=== PATIENT | male | born 1955 | race Caucasian/White ===

== ENCOUNTER 2024-10-05 18:47 | Inpatient (IN) | payer BC, MEDICARE ==
[~2024-10-05] VITALS: Ht 188 cm; Wt 98.1 kg
--- NOTE | 2024-10-05 18:58 | Physician Documentation ---
History of Present Illness ~ Chief Complaint: Stroke Alert Stated Complaint: LT EYE WENT DARK, MY DR THINKS I HAD A STROKE Time Seen by MD: 18:54 HPI one sided sight loss at floor covering printer assistant who sent patient here as he believes he is having an ischemic episode. Patient presents to the emergency room for evaluation of left-sided eye blindness of sudden onset at 5:15 p.m. patient was concerned therefore he went to his floor covering printer assistant who performed an exam and diagnosed him with central retinal artery occlusion with a booker-red macula and report was brought with patient. He had denies any one-sided deficits. Pupil was noted bili of unequal size. Medication Reconciliation Allergies: Coded Allergies: aspirin (Verified Allergy, Unknown, 10/05/24) Uncoded Allergies: ARTIFICIAL SWEETENERS (Allergy, Unknown, 10/05/24) PENICILLIN (Allergy, Unknown, 10/05/24) Review of Systems ROS All review of systems negative except as per HPI Physical Exam General Appearance General: Patient is awake, alert, oriented x4 in no acute distress Head: Normocephalic and atraumatic. Eyes: Conjunctival normal. EOMI. Noted dilated left pupil. ENT: Mucous membranes moist. Neck: Supple, trachea is midline. Chest: Clear to auscultation bilaterally without rales, rhonchi, or wheezes. There is no accessory muscle use or retractions. Cardiac: RRR without murmurs, gallops, or rubs. Extremities: Normal strength. Normal range of motion. No deformities or edema. Neuro: No weakness x4 no facial asymmetry aside from dilated left pupil. Extraocular movements intact Progress Progress Note Patient has been seen in the stroke window therefore level one stroke called. Neurologist at bedside has consented patient recommends TNK. Results/Orders Results/Orders Orders - AIDAN COLES MD Type And Screen (10/05/24 18:54) Urinalysis, Cult If Indicated (10/05/24 18:54) Chest,Single View (10/05/24 18:54) Ct Stroke Alert (10/05/24 18:54) Cta Neck/Head (10/05/24 18:54) * Vital Signs Routine* [id number] (10/05/24 18:54) * Blood Glucose Assessment * ONCE (10/05/24 18:54) * Npo Until Passed Bedside Swa (10/05/24 18:54) Nursing Swallow Screen (10/05/24 18:54) Tenecteplase-Tnkase Inj (Tnkase Inj) (10/05/24 19:45) Completed Orders - AIDAN COLES MD Electrocardiogram (10/05/24 18:54) Cbc/Diff (10/05/24 18:54) BMP (10/05/24 18:54) Pt Inr (10/05/24 18:54) PTT (10/05/24 18:54) Ct Stroke Alert (10/05/24 18:54) Cta Neck/Head (10/05/24 18:54) Iohexol 350mg/Ml 100ml (Omnipaque 350mg/ (10/05/24 18:59) Vital Signs 10/05/24 10/05/24 10/05/24 18:49 19:16 19:40 Temp 97.9 Pulse 82 77 Resp 16 16 21 B/P (MAP) 156/88 159/80 Pulse Ox 97 97 O2 Flow Rate 0 Laboratory Tests Test 10/05/24 19:19 White Blood Count 6.7 Red Blood Count 4.85 Hemoglobin 14.8 Hematocrit 43.0 Mean Corpuscular Volume 88.6 Mean Corpuscular Hemoglobin 30.6 Mean Corpuscular Hemoglobin Concent 34.5 Red Cell Distribution Width 13.9 Platelet Count 165 Mean Platelet Volume 8.4 Neutrophils (%) (Auto) 69.5 Lymphocytes (%) (Auto) 18.2 L Monocytes (%) (Auto) 9.9 Eosinophils (%) (Auto) 1.6 Basophils (%) (Auto) 0.8 Neutrophils # (Auto) 4.6 Lymphocytes # (Auto) 1.2 Monocytes # (Auto) 0.7 Eosinophils # (Auto) 0.1 Basophils # (Auto) 0.1 CBC Comment Prothrombin Time 10.4 INR International Normalized Ratio 1.0 Activated Partial Thromboplast Time 26 Coagulation Comments Sodium Level 137 Potassium Level 3.1 L Chloride Level 100 Carbon Dioxide Level 26.4 Anion Gap 11 Blood Urea Nitrogen 12 Creatinine 1.03 Estimated GFR/1.73 m2 72 BUN/Creatinine Ratio 11.7 Glucose Level 107 H Calcium Level 8.9 Albumin 3.7 Chemistry Comments EKG/XRAY/CT/US/VASC/MRI EKG : Additional Comment EKG interpreted by myself shows time of 191, rate 78, sinus rhythm, normal axis, no ST changes Medical Decision Making Findings Patient presented to the emergency room with left eye blindness. Differentials include but are not limited to central retinal artery occlusion, occipital stroke, retinal detachment, amaurosis fugax therefore emergent labs and imaging indicated. Patient brought in hand a report from the floor covering printer assistant reporting central retinal artery occlusion with a booker-red macula. This information was related to the neurologist and along with the patient's physical findings patient was consented by neurologist who recommended TNK. I have spoken to fruit grower regarding patient's case he will be admitting and monitoring for further improvement/deterioration. Departure Admitted to Inpatient Unit: yes, to fruit grower Impression: Primary Impression: Central retinal artery occlusion Referrals: NO PRIMARY CARE PROVIDER (PCP) Critical Care Note Total Time (mins): 45 Critical Care Note The very real possibility of a deterioration of this patient's condition required the highest level of my preparedness for sudden, emergent intervention. I provided critical care services, which included medication orders, frequent reevaluations of the patient's condition and response to treatment, ordering and reviewing test results, and discussing the case with various consultants. Excludes time spent performing separately billable procedures. The critical care time associated with the care of the patient was 45 minutes not counting procedu res Signature Scribe Signature: No scribe Attestation: The note accurately reflects work and decisions made by me.Aidan Coles MD 10/05/24 19:48 AIDAN COLES MD Oct 05, 2024 18:58
--- NOTE | 2024-10-05 19:14 | ELECTROCARDIOGRAPH REPORT ---
[facility] Test Date: 2024-10-05 Test Time: 19:11:55 Pat Name: CAROLE HUTCHINSON Department: [facility] Patient ID: [facility]-[id number] Room: [facility] 2012 Gender: M Meat Dresser: : 1955 Requested By: ANDRÉS TENORIO Order Number: [id number] Reading MD: Dr. Gerardo Marks Measurements Intervals [place] Rate: 78 P: 76 [place]: 154 QRS: 41 QRSD: 88 T: -13 QT: 389 QTc: 444 Interpretive Statements Sinus rhythm Borderline repolarization abnormality Electronically Signed On 10-07-2024 19:15:[address] Gerardo Marks Please click the below link to view image of tracing.
--- NOTE | 2024-10-05 19:20 | RADIOLOGY REPORT ---
Procedure: [facility] Study Date and Requested Time: 10/05/2024 06:54 PM History: pupil differences Comparison: None Dose: CTDI: 64.24 mGy DLP: 1211.73 mGycm Technique: Multiplanar images obtained through the brain without intravenous contrast. Findings: Normal brain volume and formation. Mild chronic small vessel ischemic changes. No hemorrhages, masses, mass effect, midline shift, herniation or cytotoxic edema following a large v ascular territory. No intra-axial or extra-axial fluid collections. No evidence of hydrocephalus. The basal cisterns are patent. The pituitary gland, sella and parasellar regions are unremarkable. The cerebellar tonsils are in nor mal position. The cerebellum is unremarkable. Chuck cisterna magna versus small posterior fossa arachn oid cysts. The orbits and globes are unremarkable. The paranasal sinuses and mastoids are clear. There are no wo rrisome calvarial lesions. Impression: No evidence of acute intracranial abnormality. Critical Result: Stroke Alert Findings discussed with Dr. bryan , at 10/05/2024 07:17 PM, and acknowledged receipt and underst anding of the findings. ..
[2024-10-05] MEDS ORDERED: tenecteplase-TNKase inj 10 ML IV ONE (19:25)
--- NOTE | 2024-10-05 19:28 | RADIOLOGY REPORT ---
Procedure: CT CTA NECK/HEAD HISTORY: pupil differences Comparison Study: None Exam Date:10/05/2024 06:59 PM TECHNIQUE: CTA head with intravenous contrast. CTA neck with intravenous contrast. 3D image postproc essing was performed and images were used for interpretation and reporting. Radiation Dose : CT Dose: CTDI volume is 16 mGy. Dose-length product is 643 mGy*cm FINDINGS: CTA head: There is normal enhancement of the visualized distal internal carotid, anterior and middle cerebral a rteries. There is a normal anterior communicating artery complex. There are bilateral posterior commu nicating arteries. The vertebral, basilar, cerebellar and posterior cerebral arteries are within norm al limits. The early parenchymal enhancement is grossly unremarkable. The visualized intracranial zoya ous structures are grossly unremarkable. CTA neck: The visualized thoracic aortic arch and proximal great vessels are unremarkable. The left common, int ernal and external carotid arteries are within normal limits. The right common, internal and external carotid arteries are within normal limits. The cervical segments of the right and left vertebral art eries are within normal limits. The limited visualized lung apices are clear. The surrounding soft ti ssues and osseous structures are otherwise unremarkable. IMPRESSION: 1. No evidence of hemodynamically significant intracranial stenosis, proximal occlusion or aneurysm. 2. No evidence of hemodynamically significant cervical stenosis or dissection. All CT scans at this medical facility are performed using dose modulation techniques as appropriate t o a performed exam including the following: Automated exposure control was utilized; adjustment of th e MA and/or KV according to patient size; and use of iterative reconstruction technique.
[2024-10-05 19:29] LABS: MEAN PLATELET VOLUME 8.4 FL (7.4-10.4); RED CELL DISTRIBUTION WIDTH 13.9 % (11.5-14.5)
[2024-10-05 19:41] LABS: CREATININE 1.03 MG/DL (0.60-1.10); TOTAL CARBON DIOXIDE 26.4 MMOL/L (24-32); eCRCL 81 ML/MIN; eGFR 72 ML/MIN
[2024-10-05 19:42] LABS: APTT 26 SECONDS (22-32); INR 1.0 INR
[2024-10-05] MEDS: TENECTEPLASE IV ONE (19:45)
[2024-10-05] MEDS: [UNRECOGNIZED DRUG - OTHER] IV ONE (19:45)
--- NOTE | 2024-10-05 20:13 | HISTORY AND PHYSICAL ---
History & Physical - Short Providers to CC referred to ED from ophthalmology with CRAO diagnosis~ History of Present Illness Chief Complain & History SUDDEN BLINDNESS Known HTN,HYPERLIPIDEMIA Had left eye loss of vision Has been to a eye doc-found to have CRAO Allergies: Coded Allergies: aspirin (Verified Allergy, Intermediate, Hives, 10/05/24) Uncoded Allergies: ARTIFICIAL SWEETENERS (Allergy, Severe, Anaphylaxis, 10/05/24) Reaction started as hives and has progressively gotten worse, hospitalized multiple times for this allergy PENICILLIN (Allergy, Unknown, 10/05/24) Reaction as an infant, possibly hives Past Medical History Past Medical History ABOVE Exam Last recorded Lab results: 10/05/24191810/05/241918 Vitals: Vital Signs Date Time Temp Pulse Resp B/P (MAP) Pulse Ox O2 Delivery O2 Flow Rate FiO2 10/05/24 20:05 76 11 143/81 98 10/05/24 18:49 97.9 0 EXAM LIMITED BEING video exam RN tells me of improvement in vision Diagnostic Data Diagnostic Data: Laboratory Tests Test 10/05/24 19:19 Prothrombin Time 10.4 SECONDS (9.0-12.0) INR International Normalized Ratio 1.0 INR Activated Partial Thromboplast Time 26 SECONDS (22-32) Coagulation Comments Counseling Services Smoking & Tobacco Cessation: N/A Advance Care Planning Advanced Care planning: N/A Problem\Assessment\Plan Problems: (1) Central retinal artery occlusion Status: Acute Additional Plan 1. CRAO 2.HYPOKALEMIA Now s/p tPA With improvement in vision Will need- anticoagulation? Will need to compete work up Urine studies MONIE ----- NUVIA BANDA MD Oct 05, 2024 20:13
[2024-10-05] MEDS ORDERED: ondansetron/PF 4mg/2ml inj IV PRN (20:15)
[2024-10-05] MEDS ORDERED: ATOR40TA72 PO (20:29)
[2024-10-05] MEDS ORDERED: LOSA100T58 PO (20:29)
[2024-10-05] MEDS ORDERED: ATOR-2 PO (20:29)
[2024-10-05] MEDS ORDERED: METO-384 PO (20:29)
[2024-10-05] MEDS ORDERED: HYDR25TA5 PO (20:29)
[2024-10-05] MEDS ORDERED: AMLO10TA13 PO (20:29)
--- NOTE | 2024-10-05 20:31 | RADIOLOGY REPORT ---
CHEST RADIOGRAPH Indication: Stroke Alert Technique: Single frontal view of the chest was obtained Comparison: None FINDINGS: Lines and Tubes: None Lungs: No focal consolidation. Pleura: No effusion. No pneumothorax. Cardiomediastinal contours: [id number] cardiomegaly with mild atherosclerotic calcification and uncoiling of the aorta. Bones: No acute osseous abnormality. IMPRESSION: No acute cardiopulmonary disease.
[2024-10-05 21:00] VITALS: TEMP 98.4
[2024-10-05] MEDS: normal saline 1000ml 1,000 ML IV SCH (21:09)
[2024-10-05 22:00] VITALS: BP 147/74; PULSE 74; RESP 12; O2SAT 98
--- NOTE | 2024-10-05 22:00 | CONSULTATION REPORT ---
History of Present Illness Providers to CC ~ History of Present Illness [place] [facility] Note # Demographics Consult Type: Acute Stroke Level 1 (0-4.5 hrs) Patient Location: Emergency Room First Name: CAROLE Last Name: EVANGELINA Date of : 1955 Age: 69 Gender: [place] [facility] [place] of Initial Page (): 10/05/2024 19:08 Time of Return Call (): 10/05/2024 19:09 # HPI History: 69 year old male with PMH of HTN, HLD that I was requested to evaluate for acute stroke. 17:15 suddenly became blind in his left eye and he is suffering from central retinal artery occlusion. During my evaluation the patient reports that he has total blindness in his left eye. He does not take a blood thinner. # Scores Time of exam and NIHSS (): 10/05/2024 19:22 Level of Consciousness 1a: [0] = Alert; keenly responsive LOC Questions 1b: [0] = Answers both questions correctly LOC Commands 1c: [0] = Performs both tasks correctly Best Gaze 2: [0] = Normal Visual 3: [2] = Complete hemianopia Facial Palsy 4: [0] = Normal symmetrical movements Motor Arm Left 5a: [0] = No drift Motor Arm Right 5b: [0] = No drift Motor Leg Left 6a: [0] = No drift Motor Leg Right 6b: [0] = No drift Limb Ataxia 7: [0] = Absent Sensory 8: [0] = Normal Best Language 9: [0] = No aphasia Dysarthria 10: [0] = Normal Extinction and Inattention 11: [0] = No abnormality NIHSS Total: 2 # ROS Neurologic: - see HPI # PMH-FH-SH Past Medical History: HTN, HLD # Data Time Head CT personally read by me (): 10/05/2024 19:[address]: - no bleed CTA Head: - no large vessel occlusion - preliminarily reviewed by me, please refer to radiology read for official reading CTA Neck: - patent vessels - preliminarily reviewed by me, please refer to radiology read for official reading # Assessment Impression: - Ischemic Stroke (Acute) # Plan Thrombolytic/Intervention: IV Thrombolysis Thrombolytic Dosing: IV tenecteplase 0.25 mg/kg, max dose 25 mg; single bolus IVP over 5 seconds Intraarterial Exclusion: - no large vessel occlusion (LVO) Time IV Thrombolytic Recommended (): 10/05/2024 19:22 Target Blood Pressure: - SBP < 180 - DBP < 105 Labs: - CBC - comprehensive metabolic panel - hemoglobin A1c - lipid panel - thiamine - ua - TSH Imaging: (urgency: routine): - MRI Brain without contrast Diagnostic Test: TTE Medication: - aspirin 81 mg daily - clopidogrel (Plavix) 75 mg daily Thrombolytic Administration Recommendations: - I reviewed the risks/benefits/alternatives of IV thrombolytic therapy with the patient. They understand there is potential of life threatening hemorrhage from IV thrombolysis. I stated that I believe benefits outweighs risk. They wish to proceed with IV thrombolytic therapy. - I have collected independent history specific to time last normal or last known well. We have collaborated with the ED provider and at this time, we have the most current timeline with the information that is available. - BP goal< 180/105 for 24hrs post Thrombolytic administration - Use Labetalol 10-20mg IV prn or Nicardipine gtt to maintain BP parameters - No antiplatelets or anticoagulants for next 24 hrs unless indicated for emergent IA procedure or other life threatening situation - ICU admission - Call back if there is any decline in neurological condition Other: - If patient has any neurological deterioration please call me back immediately Additional Recommendations: SUMMARY: == proceed with TNK == TTE == DUAT with plavix and aspirin x 21 days == close f/u with opthalmology Disposition: admit # Logistics Attestation of consult completion: [place] [facility] [place] participated in the visit. I performed this telemedicine visit from my offsite office utilizing interactive 2 way audio and visual telecommunication technology. Consent: Verbal consent was obtained from the patient and/or family for this encounter. Total time spent in telemedicine encounter: I spent 20 minutes reviewing clinical data and/or imaging, obtaining history, examining the patient, communicating with the onsite care team, and in preparation of this report. Critical Care time: 15 minutes of this encounter were critical care time. Due to a high probability of clinically significant, life-threatening neurologic deterioration, the patient required my highest level of preparedness to intervene emergently. I spent this critical care time managing the patient in conjunction with on-site providers who requested my consultation. In addition to the above, this critical care time included recommendation and review of studies, including imaging; arranging an urgent treatment and management plan with on-site providers; evaluation of patient's response to treatment; and documentation. This critical care time was performed to assess and manage the high probability of imminent, life-threatening deterioration that could result in neurologic catastrophe. # Demographics First Name: CAROLE Last Name: [facility] [place] [facility] [place]ergies: Coded Allergies: aspirin (Verified Allergy, Unknown, 10/05/24) Uncoded Allergies: ARTIFICIAL SWEETENERS (Allergy, Unknown, 10/05/24) PENICILLIN (Allergy, Unknown, 10/05/24) Home Medications Home Medications Active Reported Atorvastatin Calcium 40 Mg Tablet 1 Tab PO DAILY Metoprolol Succinate 50 Mg Tab.sr.24h 1 Tab PO DAILY Losartan Potassium 100 Mg Tablet 1 Tab PO DAILY Atorvastatin Calcium 80 Mg Tablet 1 Tab PO DAILY Amlodipine Besylate 10 Mg Tablet 1 Tab PO DAILY Hydrochlorothiazide 25 Mg Tab 1 Tab PO DAILY Physical Exam Last Vital Signs Recorded: Temperature: 98.4, Source: Oral, Heart Rate: 80, Respiratory Rate: 15, BP: 135/79, Pulse Oximetry: 98, Weight: 97.500 Results Diagram Lab Result Diagram: 10/05/24191810/05/241918 CONRADO NEGRO MD Oct 05, 2024 22:00
[2024-10-05] MEDS ORDERED: potassium Cl 20 mEq SR tablet PO PRN (22:10)
[2024-10-05] MEDS ORDERED: potassium Cl 40MEQ/1/2NS 520ml 520 ML IV PRN (22:10)
[2024-10-05] MEDS ORDERED: magnesium sulf-water 4G/100mL 100 ML IV PRN (22:10)
[2024-10-05] MEDS ORDERED: magnesium sulf-water 2g/50mL 50 ML IV PRN (22:10)
[2024-10-05 22:34] VITALS: RESP 12; O2SAT 98
[2024-10-05 23:00] VITALS: BP 136/84; PULSE 71; RESP 14; O2SAT 99
[2024-10-06] VITALS (36 sets, daily range): BP systolic 127–164; BP diastolic 61–86; PULSE 60–88; RESP 11–20; O2SAT 92–99
[2024-10-06 01:51] LABS: MEAN PLATELET VOLUME 8.4 FL (7.4-10.4); RED CELL DISTRIBUTION WIDTH 13.6 % (11.5-14.5)
[2024-10-06 02:04] LABS: APTT 27 SECONDS (22-32); INR 1.0 INR
[2024-10-06 02:06] LABS: CREATININE 0.84 MG/DL (0.60-1.10); TOTAL CARBON DIOXIDE 26.7 MMOL/L (24-32); eCRCL 99 ML/MIN; eGFR > 90 ML/MIN
[2024-10-06] MEDS: potassium Cl 20 mEq SR tablet PO PRN (02:21)
[2024-10-06] MEDS: K and/or MAG REPLACEMENT MC SCH (06:57)
[2024-10-06] MEDS: aspirin 81mg, enteric-coated 1 TAB TABLET.DR PO SCH (07:44)
[2024-10-06 08:22] LABS: LEUKOCYTE ESTERASE ,URINE NEGATIVE (Neg); NITRITES, URINE NEGATIVE (Neg); OCCULT BLOOD,URINE NEGATIVE (Neg); UA COLLECTION TYPE NON-SPECIFIED
[2024-10-06 08:30] LABS: URINE AMPHETAMINE SCREEN NEGATIVE (Neg); URINE BARBITUATE SCREEN NEGATIVE (Neg); URINE BENZODIAZEPINES SCREEN NEGATIVE (Neg); URINE CANNABINOID SCREEN NEGATIVE (Neg); URINE COCAINE SCREEN NEGATIVE (Neg); URINE METHADONE SCREEN NEGATIVE (Neg); URINE OPIATE SCREEN NEGATIVE (Neg); URINE PHENCYCLIDINE SCREEN NEGATIVE (Neg)
[2024-10-06 08:38] LABS: CREATININE 0.89 MG/DL (0.60-1.10); TOTAL CARBON DIOXIDE 27.1 MMOL/L (24-32); eCRCL 94 ML/MIN; eGFR 85 ML/MIN
[2024-10-06 08:47] LABS: CHOL/HDL RATIO 3.4 (0.00-4.99); LDL CHOLESTEROL 79 MG/DL (50-100)
[2024-10-06] MEDS ORDERED: CALCIUM WITH VIT D (10:41)
--- NOTE | 2024-10-06 12:07 | CONSULTATION REPORT ---
History of Present Illness Providers to CC CC: SHWETHA PIÑA MD ~ Reason for Admit\\Admit Dx: Cardiology consultation Refering MD: Dr. Josue History of Present Illness This is a 69-year-old male who presented with loss of vision. Cardiology consultation was requested by Dr. Josue for question regarding "anticoagulation recommendations". Neurology consultation was reviewed. Patient was recommended for aspirin and Plavix after 24 hours. He has a past medical history significant for moderate aortic stenosis, hypertension, hyperlipidemia. He presented with sudden onset left-sided vision loss. Went to an agriculture manager who diagnosed retinal artery occlusion. He was able to received TNK and now reporting improvement in vision. No significant chest pain or pressure. No shortness a breath. No dizziness, lightheadedness or syncope. EKG sinus rhythm. Allergies: Coded Allergies: aspirin (Verified Allergy, Intermediate, Hives, 10/05/24) Uncoded Allergies: ARTIFICIAL SWEETENERS (Allergy, Severe, Anaphylaxis, 10/05/24) Reaction started as hives and has progressively gotten worse, hospitalized multiple times for this allergy PENICILLIN (Allergy, Unknown, 10/05/24) Reaction as an , possibly hives Home Medications Home Medications Active Reported [Calcium With Vit D] Metoprolol Succinate 50 Mg Tab.sr.24h 1 Tab PO DAILY Losartan Potassium 100 Mg Tablet 1 Tab PO DAILY Atorvastatin Calcium 80 Mg Tablet 1 Tab PO DAILY Amlodipine Besylate 10 Mg Tablet 1 Tab PO DAILY Hydrochlorothiazide 25 Mg Tab 1 Tab PO DAILY Past Medical History Medical History Comment Moderate aortic stenosis Hypertension Hyperlipidemia Past Surgical History Surgical History Comment Orthopedic Past Social History Social History Comment Lifelong never smoker. Occasional alcohol use. No recreational drugs. Physical Exam Last Vital Signs Recorded: RN Vital Signs have been reviewed: Yes, Temperature: 98.4, Source: Oral, Heart Rate: 79, Respiratory Rate: 11, BP: 144/74, Pulse Oximetry: 97, Weight: 98.300 Physical Exam General: Awake, alert, oriented. No apparent distress Neck: Supple. Normal range of motion. No JVD Respiratory: Lungs are clear to auscultation bilaterally. No respiratory distress. Chest: Normal shape and size. No accessory muscle use. Cardiovascular: Regular rate and rhythm. S1-S2. No murmur, gallop, rub. Gastrointestinal: Abdomen is soft. Nontender to palpation. Bowel sounds present. Extremities: No lower extremity edema, cyanosis or clubbing. Neurologic: Alert and oriented x4. Nonfocal Psychiatric: Normal mood and affect. Skin: Normal color. Warm and dry. Review of Systems ROS Patient complains of left-sided visual field deficit. Otherwise, review of systems is negative. Results EKG EKG Sinus rhythm with no acute ST changes. Echocardiogram Echocardiogram Echocardiogram performed October 05, 2024 shows an LVEF of 70-75%. Mild concentric hypertrophy. Moderate aortic stenosis with aortic valve area 1.01 cm2, mean gradient 34 mm of mercury and peak velocity 3.79 m/sec. Other Other Procedure: CT CTA NECK/HEAD HISTORY: pupil differences Comparison Study: None Exam Date:10/05/2024 06:59 PM TECHNIQUE: CTA head with intravenous contrast. CTA neck with intravenous contrast. 3D image postprocessing was performed and images were used for interpretation and reporting. Radiation Dose : CT Dose: CTDI volume is 16 mGy. Dose-length product is 643 mGy*cm FINDINGS: CTA head: There is normal enhancement of the visualized distal internal carotid, anterior and middle cerebral arteries. There is a normal anterior communicating artery complex. There are bilateral posterior communicating arteries. The vertebral, basilar, cerebellar and posterior cerebral arteries are within normal limits. The early parenchymal enhancement is grossly unremarkable. The visualized intracranial venous structures are grossly unremarkable. CTA neck: The visualized thoracic aortic arch and proximal great vessels are unremarkable. The left common, internal and external carotid arteries are within normal limits. The right common, internal and external carotid arteries are within normal limits. The cervical segments of the right and left vertebral arteries are within normal limits. The limited visualized lung apices are clear. The surrounding soft tissues and osseous structures are otherwise unremarkable. IMPRESSION: 1. No evidence of hemodynamically significant intracranial stenosis, proximal occlusion or aneurysm. 2. No evidence of hemodynamically significant cervical stenosis or dissection. All CT scans at this medical facility are performed using dose modulation techniques as appropriate to a performed exam including the following: Automated exposure control was utilized; adjustment of the MA and/or KV according to patient size; and use of iterative reconstruction technique. Electronically Signed by:RUTH ZAMUDIO MD Date & Time: 10/05/241924 Diagram Lab Result Diagram: 10/06/24 0139 10/06/24 0804 Assessment/Plan Additional Plan Retinal artery occlusion --Neuro consultation was reviewed. Recommended for Plavix and aspirin. Patient is allergic to aspirin and we will likely require Plavix monotherapy. --Outpatient event monitor to monitor for atrial fibrillation. --Echocardiogram with bubble study needed. --high-intensity statin. Moderate aortic stenosis --we will need repeat echocardiogram in six months --continue with outpatient follow up Hypertension --continue home medications Case reviewed with Dr. Gio Piña. Patient has receiving neurology consultation with antiplatelet recommendations. Recommend following neurology recs. If any further cardiology needs please do not hesitate to recontact us. Supervising MD Supervising Physician: BRI Montoya NP Oct 06, 2024 12:07
[2024-10-06] MEDS: COMMUNICATION ORDER 1 EA MISC MC ONE (12:50)
--- NOTE | 2024-10-06 14:12 | CONSULTATION REPORT - RESIDENT ---
Consult Providers to CC Resident Creating Document: VEL GARZA RES CC: PARVIZ MENDIETA MD History of Present Illness Primary Medical Doctor: Dr. Lanie Mims Reason for Admit\Complaint: Sudden onset left-sided vision loss on 10/05 at 5 pm History of Present Illness 69-year-old male with PMH of HTN, HLD, moderate , presented to the ED with chief complaints of sudden-onset left-sided vision loss. Yesterday evening after meeting he was walking to the car when he suddenly had blackening of the vision in his left eye. Patient waited for a few minutes to clear but did not. He then call his calendar control clerk blood bank and went to them and was diagnosed with left central retinal artery occlusion. He was recommended to go to ER emergently and he came to ER around the 6:00 p.m. patient denies headache, right eye vision is normal. He denies previous history of stroke. Denies any limb weakness. Denies deviation of angle of mouth or slurring of speech are choking while eating. He was seen by his workplace rehabilitation officer Dr. Piña on 10/05 and echo was done. He had no past history of AFib or heart attack. After coming to the ER, level one stroke alert was called, CT brain knee ruled out bleeding, on neurology consulted and recommended IV thrombolysis after that he is transferred to ICU Currently patient stated improvement in left eye vision loss however it is not back to normal. Allergies: Coded Allergies: aspirin (Verified Allergy, Intermediate, Hives, 10/05/24) Uncoded Allergies: ARTIFICIAL SWEETENERS (Allergy, Severe, Anaphylaxis, 10/05/24) Reaction started as hives and has progressively gotten worse, hospitalized multiple times for this allergy PENICILLIN (Allergy, Unknown, 10/05/24) Reaction as an , possibly hives Home Medications Home Medications Active Reported [Calcium With Vit D] Metoprolol Succinate 50 Mg Tab.sr.24h 1 Tab PO DAILY Losartan Potassium 100 Mg Tablet 1 Tab PO DAILY Atorvastatin Calcium 80 Mg Tablet 1 Tab PO DAILY Amlodipine Besylate 10 Mg Tablet 1 Tab PO DAILY Hydrochlorothiazide 25 Mg Tab 1 Tab PO DAILY Past Medical History Past Medical History Hypertension Hyperlipidemia Moderate aortic stenosis Past Surgical History Surgical History Comment Right knee meniscal surgery Left shoulder surgery Past Social History Social History Comment Never smoked Occasional alcohol use Denies illicit drug use Lives in his home Independent for ADLs ROS ROS ROS Constitutional: No fever, dizziness, weakness. no change in appetite/weight HEENT: Complain of vision loss in the left eye No sore throat, epistaxis, tinnitus Cardiovascular: No chest pain/discomfort, palpitations, syncope. No pedal edema Respiratory: No sob, cough,, hemoptysis Gastrointestinal: No abdominal pain, nausea, vomiting. No diarrhea, constipation, melena. Genitourinary: No frquency, urgency, incontinence, nocturia. No dysuria, hematuria Musculoskeletal: No arthralgia, myalgia Endocrine: No fatigue, polydipsia, polyuria. No heat or cold intolerance Neurologic: No headache, vertigo. No weakness, numbness or tingling of extremities Psychiatric: No hallucinations/delusions, no anhedonia, no suicidal ideation Hematologic: No bleeding or bruises Reviewed in full. All negative except for pertinent positives in HPI Exam Vitals: Vital Signs Date Time Temp Pulse Resp B/P (MAP) Pulse Ox O2 Delivery O2 Flow Rate FiO2 10/06/24 13:00 99.0 88 12 164/77 (106) 96 Room Air 10/06/24 12:00 1.0 10/05/24 20:40 28 General: General: Elderly male, pleasant, AAO x4, not in apparent distress Head: Normocephalic with an atraumatic Eyes: Pupils- 3mm, reacting to light, conjunctiva- anicteric Nose and throat: No polyps, septum- normal, no mucosal ulcers Neck: Supple, no lymphadenopathy, no carotid bruit Respiratory: No use of accessory muscles of respiration, Bilateral normal vesiscular breath sounds heard. No wheeze, rhochi or creps Cardiac: S1-S2 heard, rythm regular, ejection systolic murmur grade 2-3 in the aortic area Abdomen: non distended, no tenderness, no organomegaly, bowel sounds- heard Extremities: no clubbing, no pedal edema, no deformities, peripheral pulses- 2+ Skin: warm and dry, no rash, no purpura Neuro: Has left central field vision loss, able to see the peripheries in the left eye, we will to see hand from 2 ft, but not able to see clearly after 4-5 feet in the left eye Right eye vision is normal Gross cranial nerve examination is normal, appears mild deviation of angle of the mouth on inspection Power normal in all limbs Diagnostic Data Last Recorded Lab Results: 10/06/24 0139 10/06/24 0804 Diagnostic Data: Laboratory Tests Test 10/06/24 01:39 Prothrombin Time 10.3 SECONDS (9.0-12.0) INR International Normalized Ratio 1.0 INR Activated Partial Thromboplast Time 27 SECONDS (22-32) Coagulation Comments Additional Plan 69-year-old male with PMH of HTN, HLD, moderate , presented to the ED with chief complaints of sudden-onset left-sided vision loss Left CRAO Acute ischemic stroke NIHSS-2 s/p TNK thrombolysis on 10/05 -presented to the ER within window period, undergone thrombolysis with tenecteplase 0.25 mg/kg, and transferred to the ER -CT brain done before thrombolysis ruled out hemorrhage -currently patient has regain of vision in the left eye -as per neurology recommendations continue atorvastatin 80 mg once daily, LDL goal of less than 70 -continue Plavix 75 mg once daily -neurology recommended DAPT for 21 days however patient is allergic to aspirin. ICU team consulted Cardiology regarding this and they recommended to continue Plavix for now -continue telemetry monitoring to look for AFib, needs outpatient loop recording or event monitor for occult AFib evaluation -pending 2D echo with bubble study, MRI brain without contrast, and repeat neuro eval -continue neuro checks q.4h -repeat-CT head today evening 730 PM -PT/ST Hypertension -current blood pressure is 160/90 -and have permissive hypertension with goal blood pressures of less than 180/105 -resume patient's home medications of amlodipine 10 mg once daily, losartan 100 mg once daily, metoprolol succinate 50 mg once daily from tomorrow morning -stop chlorthalidone in view of hypokalemia Hypokalemia- resolved -presented with potassium of 3.1 -currently potassium is 3.7 after supplementation -suspect likely secondary to chlorthalidone Hyperlipidemia -currently 79, goal LDL of less than 70 -continue atorvastatin 80 mg once daily, ezetimibe 10 mg once daily Moderate aortic stenosis -echo done on 10/05/2024-EF 70-75% mild LVH, moderate aortic stenosis with JAMES 1.01 -does not need TAVR at this time, -follow up with Cardiology on outpatient basis and repeat echo in six months Code Status: Full code Line/tube: PIV DVT prophylaxis: SCDs, heaprin not started in view of thrombolysis Nutrition: Heart healthy PT: Yes Prognosis: Guarded Disposition: Continue care in ICU, we will assume care once patient is transferred to the floor Vel Garza MD IM PGY-3 resident Date of Service: Oct 06, 2024 Billing Provider: PARVIZ MENDIETA MD,VEL, RES Oct 06, 2024 14:12
--- NOTE | 2024-10-06 14:19 | PROGRESS NOTE- Residence ---
Progress Note - Resident Providers to CC Resident Creating Document: TANKNEGIN GARCIAKATESH, SHELBY ~ Antibiotic Timeout Antibiotic Ordered?: No Subjective 69-year-old male with past medical history of hypertension, hyperlipidemia, moderate aortic stenosis presented with sudden loss of vision in left eye without any pain and he went to see the refinery operator helper cracking unit- Dr. Muro and he underwent funduscopic examination which showed booker red spot in the left eye and he was referred for hospitalization for thrombolysis. He denied weakness of limbs, slurring of speech, deviation of angle of mouth, seizures, drooling of saliva, chest pain, shortness of breath, palpitations. Consulted neurologist and soil technologist. He received total of 25 mg of tenecteplase at the rate of 0.25 milligram/kilogram bolus dose over [address] Adrián Eugene. He is in 24 hour monitoring window Of status post TNK administration. He is allergic to aspirin and he had anaphylactic shock but he is not sure of the cause(aspirin versus penicillin). He is following Dr. Piña for aortic stenosis and he had echocardiogram on October 05 which showed left ventricular ejection fraction of 70-75%. Mild concentric hypertrophy. Moderate aortic stenosis. Objective Vital Signs Date Time Temp Pulse Resp B/P (MAP) Pulse Ox O2 Delivery O2 Flow Rate FiO2 10/06/24 13:00 99.0 88 12 164/77 (106) 96 Room Air 10/06/24 12:00 1.0 10/05/24 20:40 28 Result Diagram: 10/06/24 0139 10/06/24 0804 General: Elderly male, pleasant, AAO x4, not in apparent distress Head: Normocephalic with an atraumatic Eyes: Pupils- 3mm, reacting to light, conjunctiva- anicteric. Central scotoma is present Nose and throat: No polyps, septum- normal, no mucosal ulcers Neck: Supple, no lymphadenopathy, no carotid bruit Respiratory: No use of accessory muscles of respiration, Bilateral normal vesiscular breath sounds heard. No wheeze, rhochi or creps Cardiac: S1-S2 heard, rythm regular, ejection systolic murmur grade 2-3 in the aortic area Abdomen: non distended, no tenderness, no organomegaly, bowel sounds- heard Extremities: no clubbing, no pedal edema, no deformities, peripheral pulses- 2+ Skin: warm and dry, no rash, no purpura Neuro: Has left central field- fuzzy spots-, able to see through peripheries in the left eye(improved) Right eye vision is normal Gross cranial nerve examination is normal. Motor system is normal with power of 5/5 in all 4 limbs. Coagulation Studies Laboratory Tests Test 10/06/24 01:39 Prothrombin Time 10.3 SECONDS (9.0-12.0) INR International Normalized Ratio 1.0 INR Activated Partial Thromboplast Time 27 SECONDS (22-32) Coagulation Comments Advance Care Planning Advanced Care planning: Add on additional 30 min Plan Plan Cerebrovascular Accident with Acute Ischemic stroke NIHSS of 2 Left central retinal artery occlusion Status post thrombolysis with tenecteplase on 1944 Received thrombolysis with 0.25 milligram/kilogram 10 Dr. Lucas, total dose of 25 mg as he was in the window. He had a sudden loss of vision in the left eye at 5:00 p.m. on yesterday and received tenecteplase at 7:45 p.m. 10/05. Consulted Dr. Muro, refinery operator helper cracking unit recommended for ER visit for thrombolysis. Consulted tele neurologist Dr. Adrián Eugene-recommended for MRI, A1c, lipid panel, TTE Imaging with CT and CT angiography of head and neck showed no evidence of acute intracranial abnormality Ordered A1c, lipid panel, echocardiogram, MRI head and we will follow up with the results We will follow up with neurologist after MRI before starting Plavix even though neurologist recommended for Plavix and aspirin for 21 days and he did not received the aspirin because of previous history of anaphylactic shock. We will call the tele neurologist once MRI is done and to start any other antiplatelet other than aspirin(aspirin anaphylaxis) along with Plavix for 21 days Urinalysis and U tox is negative Moderate Aortic stenosis Consulted Dr. Piña and we will appreciate the recommendations, recommended for follow up in Cardiology in outpatient and repeat echo in 6 months echo done on 10/05/2024-EF 70-75% mild LVH, moderate aortic stenosis with JAMES 1.01 does not need TAVR at this time, Echo done on 10/06/2024 showed trace pericardial effusion Hypertension Blood pressure is fluctuating between 130s and 160s BP goal< 180/105 for 24hrs post Thrombolytic administration We will Use Labetalol 10-20mg IV prn or Nicardipine gtt to maintain BP parameters Hyperlipidemia Current LDL is 79 On atorvastatin 80 mg, ezetimibe 10 mg p.o. daily Hypokalemia Improved from 3.1 to 3.7 with replacement Currently on replacement protocol Overweight with a BMI of 27.8 Outpatient follow-up with lifestyle modifications Hyperbilirubinemia Serum total bilirubin is 1.2 and we will monitor the liver function tests Code status: Full code Lines and tubes: PIV DVT prophylaxis: SCDs, Diet: Heart healthy diet PT: Ordered Prognosis: Guarded Date of Service: Oct 06, 2024 Billing Provider: MIRTA BARRETO MD, VENKATESH, RES Oct 06, 2024 14:19
--- NOTE | 2024-10-06 21:08 | RADIOLOGY REPORT ---
EXAM: MR MRI HEAD HISTORY: cva-acute ischemic stroke COMPARISON: None TECHNIQUE: MRI was performed utilizing multiple appropriate imaging planes and pulse sequences. FINDINGS: Several sequences slightly limited by motion. Small acute infarcts within the right temporal lobe in the periventricular region near the occipital horn of the right lateral ventricle. There is a focal infarct within the left frontal lobe measuring 6.8 cm. Few areas of punctate restricted diffusion within the right frontal lobe. There is no acute intracranial hemorrhage extra-axial fluid collection, mass effect, or midline shift . The ventricles are normal in size. Paranasal sinuses and mastoid air cells are clear. Visualized intracranial flow voids are preserved. IMPRESSION: 1. Few cardioembolic appearing infarcts within the bilateral frontal lobes and right temporal lobe.
[2024-10-07] VITALS (12 sets, daily range): BP systolic 119–169; BP diastolic 55–99; PULSE 62–90; RESP 10–15; O2SAT 95–99
[2024-10-07 01:53] LABS: MEAN PLATELET VOLUME 8.4 FL (7.4-10.4); RED CELL DISTRIBUTION WIDTH 13.7 % (11.5-14.5)
[2024-10-07 02:06] LABS: CREATININE 1.02 MG/DL (0.60-1.10); TOTAL CARBON DIOXIDE 24.5 MMOL/L (24-32); eCRCL 82 ML/MIN; eGFR 73 ML/MIN
[2024-10-07 02:08] LABS: APTT 27 SECONDS (22-32); INR 1.0 INR
--- NOTE | 2024-10-07 08:58 | [facility] CONSULT REPORT ---
[facility] Procedure Note [facility] Procedure Note Consult [facility] Note # Demographics Consult Type: Follow-Up Phone Call Patient Location: Inpatient First Name: Mark Last Name: Meron Date of : 1955 Age: 69 Gender: Male Facility: [facility] Time of Initial Page (Williams ): 10/07/2024 08:33 Time of Return Call (Williams Time): 10/07/2024 08:33 Phone Only Consult: 69 M who received TNK for CRAO. MRI Brain showed embolic appearing infarcts within the bilateral frontal lobes and right temporal lobe. OK to continue with Plavix and statin for goal LDL < 70. No indication for anticoagulation (no reports of AFib). Phone Agreement: - phone consult deemed mutually sufficient for patient care # Plan Other: - If patient has any neurological deterioration please call me back immediately # Demographics First Name: Mark Last Name: Meron Facility: [facility] Neuro Consult Order placed for: Yes FAINA JEAN MD Oct 07, 2024 08:58
--- NOTE | 2024-10-07 10:27 | DISCHARGE SUMMARY-Residence ---
Discharge Summary Providers to Resident Creating Document: ANAID REZA, RES ~ Discharge Summary Admission Diagnosis: stroke Hospital Course DATE OF ADMISSION: 10/05/2024 DATE OF DISCHARGE: 10/07/[address] on 10/05/2024 Findings: Normal brain volume and formation. Mild chronic small vessel ischemic changes. No hemorrhages, masses, mass effect, midline shift, herniation or cytotoxic edema following a large vascular territory. No intra-axial or extra-axial fluid collections. No evidence of hydrocephalus. The basal cisterns are patent. The pituitary gland, sella and parasellar regions are unremarkable. The cerebellar tonsils are in normal position. The cerebellum is unremarkable. Chuck cisterna magna versus small posterior fossa arachnoid cysts. The orbits and globes are unremarkable. The paranasal sinuses and mastoids are clear. There are no worrisome calvarial lesions. Impression: No evidence of acute intracranial abnormality. Head/neck CTA on 10/05/2024 FINDINGS: CTA head: There is normal enhancement of the visualized distal internal carotid, anterior and middle cerebral arteries. There is a normal anterior communicating artery complex. There are bilateral posterior communicating arteries. The vertebral, basilar, cerebellar and posterior cerebral arteries are within normal limits. The early parenchymal enhancement is grossly unremarkable. The visualized intracranial venous structures are grossly unremarkable. CTA neck: The visualized thoracic aortic arch and proximal great vessels are unremarkable. The left common, internal and external carotid arteries are within normal limits. The right common, internal and external carotid arteries are within normal limits. The cervical segments of the right and left vertebral arteries ar e within normal limits. The limited visualized lung apices are clear. The surrounding soft tissues and osseous structures are otherwise unremarkable. IMPRESSION: 1. No evidence of hemodynamically significant intracranial stenosis, proximal occlusion or aneurysm. 2. No evidence of hemodynamically significant cervical stenosis or dissection. Chest x-ray 10/05/2024 FINDINGS: Lines and Tubes: None Lungs: No focal consolidation. Pleura: No effusion. No pneumothorax. Cardiomediastinal contours: [id number] cardiomegaly with mild atherosclerotic calcification and uncoiling of the aorta. Bones: No acute osseous abnormality. IMPRESSION: No acute cardiopulmonary disease. Echocardiogram on 10/06/2024 LEFT VENTRICLE Normal appearing LV size and function. Mild concentric hypertrophy. LVEF is 75%. Limited saline only exam. RIGHT VENTRICLE RV appears normal size and function. Limited saline only exam. ATRIA Left atrium is mildly dilated. Saline study was performed with 2 IV injections of 10 ccs of agitated normal saline at rest. Negative saline study for right to left flow. AORTIC VALVE Limited AV visualization appears at least moderately stenotic and calcified with probable (see comprehensive report) moderate stenosis. No obvious insufficiency. Limited saline only exam. MITRAL VALVE Mild MV annular calcification without obvious stenosis. Mild regurgitation. Limited saline only exam. PERICARDIUM Trivial pericardial effusion without hemodynamic compromise. MRI head on 10/06/2024 FINDINGS: Several sequences slightly limited by motion. Small acute infarcts within the right temporal lobe in the periventricular region near the occipital horn of the right lateral ventricle. There is a focal infarct within the left frontal lobe measuring 6.8 cm. Few areas of punctate restricted diffusion within the right frontal lobe. There is no acute intracranial hemorrhage extra-axial fluid collection, mass effect, or midline shift. The ventricles are normal in size. Paranasal sinuses and mastoid air cells are clear. Visualized intracranial flow voids are preserved. IMPRESSION: 1. Few cardioembolic appearing infarcts within the bilateral frontal lobes and right temporal lobe. Discharge Diagnosis\Comment: Cerebrovascular accident Acute ischemic stroke with NIHSS of 2 Cardioembolic appearing infarcts in bilateral frontal lobes and right temporal lobe Left central retinal artery occlusion Left central scotoma Moderate aortic stenosis Hypertension Hyperlipidemia Hypokalemia Overweight with BMI of 27.8 Hyper bilirubinemia, cause could not be ruled out Operations\Procedures: None Consultants: Dr. Awa Eugene , [facility] neurologist Dr.Quang Shay Pérez Complications: None Condition on DC: Stable New Medications: Clopidogrel Bisulfate (Clopidogrel) 75 Mg Tablet 1 TAB PO DAILY for 30 Days, #30 TAB 0 Refills Ezetimibe (Ezetimibe) 10 Mg Tablet 10 MG PO DAILY for 30 Days, #30 TAB Continued Medications: Amlodipine Besylate (Amlodipine Besylate) 10 Mg Tablet 1 TAB PO DAILY Atorvastatin Calcium (Atorvastatin Calcium) 80 Mg Tablet 1 TAB PO DAILY Hydrochlorothiazide (Hydrochlorothiazide) 25 Mg Tab 1 TAB PO DAILY Losartan Potassium (Losartan Potassium) 100 Mg Tablet 1 TAB PO DAILY Metoprolol Succinate (Metoprolol Succinate) 50 Mg Tab.sr.24h 1 TAB PO DAILY Discharge Summary: HPI at the time of admission 69-year-old male with PMH of HTN, HLD, moderate , presented to the ED with chief complaints of sudden-onset left-sided vision, painless loss at 5:00 p.m.. Yesterday evening after meeting he was walking to the car when he suddenly had blackening of the vision in his left eye. Patient waited for a few minutes to clear but did not. He then call his master data analyst and went to them and was diagnosed with left central retinal artery occlusion. He was recommended to go to ER emergently and he came to ER around the 6:00 p.m. patient denies headache, right eye vision is normal. He denies previous history of stroke. Denies any limb weakness. Denies deviation of angle of mouth or slurring of speech are choking while eating. He was seen by his meat pumper Dr. Pñia on 10/05 and echo was done. He had no past history of AFib or heart attack. After coming to the ER, level one stroke alert was called, CT brain knee ruled out bleeding, on neurology consulted and recommended IV thrombolysis after that he is transferred to ICU Course in the hospital Admitted with cerebrovascular accident, acute ischemic stroke with NIHSS of 2 with left central retinal artery occlusion and left central scotoma. Received thrombolysis with tenecteplase 0.25milligram/kg 8, a total of 25 mg bolus in 5 seconds on 7:45 p.m., 10/05. He consulted Dr. Muro, master data analyst before coming to ER. We consulted the [facility] tele neurologist Dr. Adrián Eugene who recommended for MRI, echocardiogram, A1c, lipid panel, dual antiplatelet with aspirin and clopidogrel. 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 MRI showed few cardioembolic appearing infarcts within the bilateral frontal lobes and right temporal lobe. We again consulted [facility] tele neurologist(Dr. Yuniel Day) and he recommended for continuation of single antiplatelet agent Plavix 75 did not recommended for anticoagulation as there is no reports of AFib during hospitalization. We consulted Dr.Aazib Piña for recommendations of anticoagulation for possible paroxysmal atrial fibrillation and he recommended for outpatient event monitoring for atrial fibrillation and outpatient follow up. We added the ezetimibe as LDL goal is less than 70 and current LDL is 79 and A1c is 5.8 Moderate aortic stenosis is being followed by Dr. Piña at his office and recommended for repeat echo in 6 months. Echo done on 10/05/2024 showed moderate aortic stenosis with JAMES of 1.01. Code done at hospital on 10/06/2024 show trace pericardial effusion. We maintain the blood pressure between 130s to 150s with a goal of less than 180/105 for 24 hours post thrombolytic administration. Neurologist recommended for labetalol or nicardipine for blood pressure control but it never crossed 180 and we gave his home medications of losartan 100 mg. Hypokalemia is noted which was improved with replacement per protocol. Overweight of BMI 27.8 is noted recommended for lifestyle evan fications with low calorie intake and physical exercise. On SCDs for DVT prophylaxis and heart healthy diet. We discharged him and recommended to follow up with Dr. Piña's office today for event monitoring Examination time of discharge Vital Signs Date Time Temp Pulse Resp B/P (MAP) Pulse Ox O2 Delivery O2 Flow Rate FiO2 10/07/24 10:00 78 14 157/90 (112) 95 Room Air 10/07/24 05:00 99.0 10/06/24 20:00 1.5 10/05/24 20:40 28 General: Elderly male, pleasant, AAO x4, not in apparent distress Head: Normocephalic with an atraumatic Eyes: Pupils- 3mm, reacting to light, conjunctiva- anicteric. Central scotoma is present Nose and throat: No polyps, septum- normal, no mucosal ulcers Neck: Supple, no lymphadenopathy, no carotid bruit Respiratory: No use of accessory muscles of respiration, Bilateral normal vesiscular breath sounds heard. No wheeze, rhochi or creps Cardiac: S1-S2 heard, rythm regular, ejection systolic murmur grade 2-3 in the aortic area Abdomen: non distended, no tenderness, no organomegaly, bowel sounds- heard Extremities: no clubbing, no pedal edema, no deformities, peripheral pulses- 2+ Skin: warm and dry, no rash, no purpura Neuro: Has left central field- fuzzy spots-, able to see through peripheries in the left eye(improved) Right eye vision is normal Gross cranial nerve examination is normal. Motor system is normal with power of 5/5 in all 4 limbs. Laboratory Tests Test 7/21/25 19:19 10/05/24 21:23 10/06/24 01:39 10/06/24 08:04 White Blood Count 6.7 X10'3 7.3 X10'3 Red Blood Count 4.85 X10'6 5.07 X10'6 Hemoglobin 14.8 g/dl 15.6 g/dl Hematocrit 43.0 % 45.0 % Mean Corpuscular Volume 88.6 FL 88.8 FL Mean Corpuscular Hemoglobin 30.6 PG 30.7 PG Mean Corpuscular Hemoglobin Concent 34.5 g/dL 34.6 g/dL Red Cell Distribution Width 13.9 % 13.6 % Platelet Count 165 X10'3 161 X10'3 Mean Platelet Volume 8.4 FL 8.4 FL Neutrophils (%) (Auto) 69.5 % 65.1 % Lymphocytes (%) (Auto) 18.2 % 22.4 % Monocytes (%) (Auto) 9.9 % 9.5 % Eosinophils (%) (Auto) 1.6 % 2.4 % Basophils (%) (Auto) 0.8 % 0.6 % Neutrophils # (Auto) 4.6 X10'3 4.8 X10'3 Lymphocytes # (Auto) 1.2 X10'3 1.6 X10'3 Monocytes # (Auto) 0.7 X10'3 0.7 X10'3 Eosinophils # (Auto) 0.1 X10'3 0.2 X10'3 Basophils # (Auto) 0.1 X10'3 0.0 X10'3 CBC Comment Prothrombin Time 10.4 SECONDS 10.3 SECONDS INR International Normalized Ratio 1.0 INR 1.0 INR Activated Partial Thromboplast Time 26 SECONDS 27 SECONDS Coagulation Comments Sodium Level 137 MMOL/L 139 MMOL/L 138 MMOL/L Potassium Level 3.1 MMOL/L 2.9 MMOL/L 3.7 MMOL/L Chloride Level 100 MMOL/L 104 MMOL/L 105 MMOL/L Carbon Dioxide Level 26.4 MMOL/L 26.7 MMOL/L 27.1 MMOL/L Anion Gap 11 8 6 Blood Urea Nitrogen 12 MG/DL 11 MG/DL 10 MG/DL Creatinine 1.03 MG/DL 0.84 MG/DL 0.89 MG/DL Estimated GFR/1.73 m2 72 ML/MIN > 90 ML/MIN 85 ML/MIN BUN/Creatinine Ratio 11.7 13.1 11.2 Glucose Level 107 MG/DL 110 MG/DL 122 MG/DL Calcium Level 8.9 MG/DL 9.0 MG/DL 8.8 MG/DL Albumin 3.7 G/DL 3.5 G/DL 3.6 G/DL Chemistry Comments Glucometer 117 mg/dl Magnesium Level 2.1 MG/DL Urine Specimen Description Non-specified Urine Color Yellow Urine Clarity Clear Urine pH 6.5 Urine Specific [place] <=1.005 Urine Protein Negative mg/dl Urine Glucose (UA) Negative mg/dl Urine Ketones Negative mg/dl Urine Occult Blood Negative Urine Nitrite Negative Urine Bilirubin Negative Urine Urobilinogen 0.2 E.U/dL Urine Leukocyte Esterase Negative Urine Culture Indicated Not ind Volume Urine Centrifuged 10 ml Urine Comment Hemoglobin A1c 5.8 % Total Bilirubin 1.2 MG/DL Aspartate Amino Transf (AST/SGOT) 24 U/L Alanine Aminotransferase (ALT/SGPT) 32 U/L Alkaline Phosphatase 92 IU/L Total Protein 7.0 G/DL Globulin 3.4 G/DL Albumin/Globulin Ratio 1.1 Triglycerides Level 102 MG/DL Cholesterol Level 138 MG/DL LDL Cholesterol 79 MG/DL HDL Cholesterol 41 MG/DL Cholesterol/HDL Ratio 3.4 Thyroid Stimulating Hormone (TSH) 2.32 ulU/ml Urine Opiates Screen Negative Urine Methadone Screen Negative Urine Fentanyl Screen Negative Urine Barbiturates Screen Negative Urine Phencyclidine Screen Negative Urine Amphetamines Screen Negative Urine Benzodiazepines Screen Negative Urine Cocaine Screen Negative Urine Cannabinoids Screen Negative Drug Screen Comment Test 10/07/24 01:39 White Blood Count 5.7 X10'3 Red Blood Count 4.96 X10'6 Hemoglobin 15.2 g/dl Hematocrit 44.3 % Mean Corpuscular Volume 89.3 FL Mean Corpuscular Hemoglobin 30.7 PG Mean Corpuscular Hemoglobin Concent 34.4 g/dL Red Cell Distribution Width 13.7 % Platelet Count 147 X10'3 Mean Platelet Volume 8.4 FL Neutrophils (%) (Auto) 61.9 % Lymphocytes (%) (Auto) 25.0 % Monocytes (%) (Auto) 9.4 % Eosinophils (%) (Auto) 2.8 % Basophils (%) (Auto) 0.9 % Neutrophils # (Auto) 3.5 X10'3 Lymphocytes # (Auto) 1.4 X10'3 Monocytes # (Auto) 0.5 X10'3 Eosinophils # (Auto) 0.2 X10'3 Basophils # (Auto) 0.0 X10'3 CBC Comment Prothrombin Time 10.3 SECONDS INR International Normalized Ratio 1.0 INR Activated Partial Thromboplast Time 27 SECONDS Coagulation Comments Sodium Level 140 MMOL/L Potassium Level 3.9 MMOL/L Chloride Level 106 MMOL/L Carbon Dioxide Level 24.5 MMOL/L Anion Gap 10 Blood Urea Nitrogen 12 MG/DL Creatinine 1.02 MG/DL Estimated GFR/1.73 m2 73 ML/MIN BUN/Creatinine Ratio 11.8 Glucose Level 118 MG/DL Calcium Level 8.8 MG/DL Magnesium Level 2.2 MG/DL Albumin 3.5 G/DL Chemistry Comments Discharge advice Follow up with primary care within 1-2 days and with lipid panel in 3 months. Follow up with meat pumper on today for event monitoring placement to check up on possible paroxysmal atrial fibrillation Follow up with master data analyst in a week for central scotoma/CRAO. Follow up neurologist in a week. Continue Plavix 75 mg p.o. daily, atorvastatin 80 mg, ezetimibe 10 mg p.o. daily Continue home medications of losartan 100 mg, amlodipine 10 mg, metoprolol 50 mg, hydrochlorothiazide 25 mg and continue to monitor blood pressure daily Lifestyle modifications with low-salt diet and physical exercise of 150 minutes per week Call 911 or visit ER if emergency, stroke symptoms-weakness of limbs, slurring of speech, exaggerated visual defects, deviation of angle of mouth. *Problems/Diagnosis: (1) Central retinal artery occlusion Status: Acute (2) Cerebrovascular accident (3) Acute ischemic stroke (4) Cardioembolic stroke (5) Central retinal artery occlusion, left eye (6) Central scotoma, left eye (7) Moderate aortic stenosis (8) Hypertension (9) Hyperlipidemia (10) Hypokalemia (11) Overweight (BMI 25.0-29.9) (12) Hyperbilirubinemia Total Time Spent on D/C: > 30 Minutes Date of Service: Oct 07, 2024 Billing Provider: MIRTA BARRETO MD, VENKATESH, SHELBY Oct 07, 2024 10:27
[2024-10-07] MEDS ORDERED: CLOP75TA33 PO (10:28)
--- NOTE | 2024-10-07 11:12 | PROGRESS NOTE- Residence ---
Progress Note - Resident Providers to CC Resident Creating Document: ROBERTO GARZA RES CC: PARVIZ MENDIETA MD ~ Antibiotic Timeout Antibiotic Ordered?: No Subjective Patient is seen this morning along with his . NAOE, stated left eye vision is improving. No other complaints. Informed to the patient that he has to follow up with language path on outpatient basis for loop recorder/event monitor and patient is agreeable Objective Vital Signs Date Time Temp Pulse Resp B/P (MAP) Pulse Ox O2 Delivery O2 Flow Rate FiO2 10/07/24 10:53 90 10/07/24 10:00 14 157/90 (112) 95 Room Air 10/07/24 05:00 99.0 10/06/24 20:00 1.5 10/05/24 20:40 28 Result Diagram: 10/07/2413810/07/24138 General: Elderly male, pleasant, AAO x4, not in apparent distress Head: Normocephalic with an atraumatic Eyes: Pupils- 3mm, reacting to light, conjunctiva- anicteric Nose and throat: No polyps, septum- normal, no mucosal ulcers Neck: Supple, no lymphadenopathy, no carotid bruit Respiratory: No use of accessory muscles of respiration, Bilateral normal vesiscular breath sounds heard. No wheeze, rhochi or creps Cardiac: S1-S2 heard, rythm regular, ejection systolic murmur grade 2-3 in the aortic area Abdomen: non distended, no tenderness, no organomegaly, bowel sounds- heard Extremities: no clubbing, no pedal edema, no deformities, peripheral pulses- 2+ Skin: warm and dry, no rash, no purpura Neuro: Has left central field vision loss, able to see the peripheries in the left eye, we will to see hand from 2 ft, but not able to see clearly after 4-5 feet in the left eye Right eye vision is normal Gross cranial nerve examination is normal, appears mild deviation of angle of the mouth on inspection Power normal in all limbs Coagulation Studies Laboratory Tests Test 10/07/24 01:39 Prothrombin Time 10.3 SECONDS (9.0-12.0) INR International Normalized Ratio 1.0 INR Activated Partial Thromboplast Time 27 SECONDS (22-32) Coagulation Comments Assessment Assessment 69-year-old male with PMH of HTN, HLD, moderate , presented to the ED with chief complaints of sudden-onset left-sided vision loss Plan Plan Left CRAO Acute ischemic/cardioembolic stroke NIHSS-2 s/p TNK thrombolysis on 10/05 -presented to the ER within window period, undergone thrombolysis with tenecteplase 0.25 mg/kg, and transferred to the ER -CT brain done before thrombolysis ruled out hemorrhage -currently patient has regain of vision in the left eye -as per neurology recommendations continue atorvastatin 80 mg once daily, LDL goal of less than 70 -continue Plavix 75 mg once daily -neurology recommended DAPT for 21 days however patient is allergic to aspirin. ICU team consulted Cardiology regarding this and they recommended to continue Plavix for now -continue telemetry monitoring to look for AFib, needs outpatient loop recording or event monitor for occult AFib evaluation -MRI showed cardioembolic appearing infarcts within the bilateral frontal lobes and right temporal lobe. -echo negative for bubble study -neurology recommended to continue SAPT with Plavix and atorvastatin Hypertension -continue patient's home medications of amlodipine 10 mg once daily, losartan 100 mg once daily, metoprolol succinate 50 mg once daily from tomorrow morning Hypokalemia- resolved -presented with potassium of 3.1 -currently potassium is 3.7 after supplementation -suspect likely secondary to hctz Hyperlipidemia -currently 79, goal LDL of less than 70 -continue atorvastatin 80 mg once daily, ezetimibe 10 mg once daily Moderate aortic stenosis -echo done on 10/05/2024-EF 70-75% mild LVH, moderate aortic stenosis with JAMES 1.01 -does not need TAVR at this time, -follow up with Cardiology on outpatient basis and repeat echo in six months Code Status: Full code Line/tube: PIV DVT prophylaxis: SCDs, heaprin not started in view of thrombolysis Nutrition: Heart healthy PT: Yes Prognosis: Guarded Disposition: Patient is discharged by the ICU team today. He will follow up with Cardiology on outpatient basis for event monitor/loop recorder Roberto Garza MD IM PGY-3 resident Date of Service: Oct 07, 2024 Billing Provider: PARVIZ MENDIETA MD,ROBERTO, RES Oct 07, 2024 11:12
[2024-10-07] MEDS ORDERED: EZET10TA48 PO (11:21)
--- NOTE | 2024-10-07 19:00 | CARDIOLOGY REPORT ---
APPROVED REPORT EXAM: Limited 2D, Doppler, and color-flow Echocardiogram with saline. Patient Location: [facility] 2012 Blood Pressure: 127/72 mmHg Heart Rate: 70'S bpm Rhythm: SINUS Indications STROKE EVALUATE PFO Rotary Shear Cutter: Yaakov Piña MD Previous echo: 10/05/24 [facility] EF: 70-75%; nlLV; mCLVH; nlRV; modLAE; modAS - JAMES: 1.02; pkv: 3.79; gr ad: 58 /34; modMAC; mMR; mTR; noPE LEFT VENTRICLE Normal appearing LV size and function. Mild concentric hypertrophy. LVEF is 75%. Limited saline only exam. RIGHT VENTRICLE RV appears normal size and function. Limited saline only exam. ATRIA Left atrium is mildly dilated. Saline study was performed with 2 IV injections of 10 ccs of agitated normal saline at rest. Negative saline study for right to left flow. AORTIC VALVE Limited AV visualization appears at least moderately stenotic and calcified with probable (see compre hensive report) moderate stenosis. No obvious insufficiency. Limited saline only exam. MITRAL VALVE Mild MV annular calcification without obvious stenosis. Mild regurgitation. Limited saline only exam . PERICARDIUM Trivial pericardial effusion without hemodynamic compromise. Other Information Study Quality: Adequate Conclusion Normal appearing LV size and function. Mild concentric hypertrophy. LVEF is 75%. Limited saline on ly exam. RV appears normal size and function. Limited saline only exam. Left atrium is mildly dilated. Saline study was performed with 2 IV injections of 10 ccs of agitated normal saline at rest. Negativ e saline study for right to left flow. Limited AV visualization appears at least moderately stenotic and calcified with probable (see compre hensive report) moderate stenosis. No obvious insufficiency. Limited saline only exam. Mild MV annular calcification without obvious stenosis. Mild regurgitation. Limited saline only ex am. Trivial pericardial effusion without hemodynamic compromise.
== END 2024-10-07 11:39 | disposition home or self-care (01) | DRG 62 ==
LOC: ER 18:48 → ED HOLD 20:19 → CICU 2S 21:36
PROVIDERS: ADMIT Internal Medicine Critical Care Medicine; ATTEND Internal Medicine Critical Care Medicine
PROC: 3E03317 Introduction of Other Thrombolytic into Peripheral Vein, Percutaneous Approach (ICD-10-PCS; principal; 2024-10-05)
PROC: B3251ZZ Computerized Tomography (CT Scan) of Bilateral Common Carotid Arteries using Low Osmolar Contrast (ICD-10-PCS; 2024-10-05)
PROC: B32G1ZZ Computerized Tomography (CT Scan) of Bilateral Vertebral Arteries using Low Osmolar Contrast (ICD-10-PCS; 2024-10-05)
PROC: B32R1ZZ Computerized Tomography (CT Scan) of Intracranial Arteries using Low Osmolar Contrast (ICD-10-PCS; 2024-10-05)
PROC: B3281ZZ Computerized Tomography (CT Scan) of Bilateral Internal Carotid Arteries using Low Osmolar Contrast (ICD-10-PCS; 2024-10-05)
DX: I63.9 Cerebral infarction, unspecified (principal); H34.12 Central retinal artery occlusion, left eye; I10 Essential (primary) hypertension; E87.6 Hypokalemia; E78.5 Hyperlipidemia, unspecified; R29.702 NIHSS score 2; I35.0 Nonrheumatic aortic (valve) stenosis; H53.412 Scotoma involving central area, left eye; E66.3 Overweight; Z88.0 Allergy status to penicillin; Z88.6 Allergy status to analgesic agent; Z68.27 Body mass index [BMI] 27.0-27.9, adult
CPT/HCPCS: 36415; 70450; 70496; 70498; 70551; 71045; 80048; 80053; 80061; 80305; 81003; 82948; 83036; 83735; 84443; 85025; 85610; 85730; 86885; 86900; 86901; 87081; 93005; 93308; 97110; 97116; 97161; 99291; A4615; A6213; G0378; J3101; J7030; Q9967